=== PATIENT | female | born 1960 | race Caucasian/White ===

== ENCOUNTER 2017-07-23 10:47 | Emergency (ER) | payer OTHER ==
[~2017-07-23] VITALS: Ht 167.6 cm; Wt 68.0 kg
[2017-07-23 10:59] VITALS: BP 135/62
--- NOTE | 2017-07-23 11:34 | RAD ---
WRIST 3V RIGHT Clinical Indication: wrist pain after tripping over cat Comparison: None. Findings: There is acute traumatic fracture of the distal radial metaphysis with intra-articular extension. There is a medial and dorsal fracture fragment that is slightly displaced. There is minimal dorsal angulation of the dominant fracture fragment. There is soft tissue swelling of the wrist. No acute fracture of the carpal bones is identified. Mineralization appears normal. IMPRESSION: Acute traumatic fracture of the distal radius.
[2017-07-23] MEDS ORDERED: HYDR-971 PO (11:37)
--- NOTE | 2017-07-23 11:38 | PHYS DOC ---
Past Medical History Past Medical History: Arthritis Past Surgical History: Cervical Fusion, Cholecystectomy, Hysterectomy Alcohol Use: None Drug Use: None Adult General Chief Complaint Chief Complaint: WRIST PAIN [facility] HPI Patient is a 57 year old female presents to the emergency department complaining of right wrist pain. Patient states that she had fallen over her cat last night try to catch herself with her right arm. Patient states she has taken ibuprofen this morning. She does have deformity noted to the wrist area. Peripheral pulses 2+ cap refill brisk less than 2 seconds. Patient has good sensation noted to her fingers. Review of Systems Review of Systems Constitutional: Denies fever or chills [] Eyes: Denies change in visual acuity, redness, or eye pain [] HENT: Denies nasal congestion or sore throat [] Respiratory: Denies cough or shortness of breath [] Cardiovascular: No additional information not addressed in HPI [] GI: Denies abdominal pain, nausea, vomiting, bloody stools or diarrhea [] : Denies dysuria or hematuria [] Musculoskeletal: Denies back pain. c/o right wrist pain Integument: Denies rash or skin lesions [] Neurologic: Denies headache, focal weakness or sensory changes [] Endocrine: Denies polyuria or polydipsia [] All other systems were reviewed and found to be within normal limits, except as documented in this note. Allergies Allergies Allergies Coded Allergies Type Severity Reaction Last Updated Verified Penicillins Allergy Unknown Rash 07/23/17 Yes Physical Exam Physical Exam Constitutional: Well developed, well nourished, no acute distress, non-toxic appearance. [] HENT: Normocephalic, atraumatic, bilateral external ears normal, oropharynx moist, no oral exudates, nose normal. [] Eyes: PERRLA, EOMI, conjunctiva normal, no discharge. [] Neck: Normal range of motion, no tenderness, supple, no stridor. [] Cardiovascular:Heart rate regular rhythm Lungs & Thorax: No respiratory distress noted Skin: Warm, dry, no erythema, no rash. [] Back: No tenderness] Extremities: Right wrist tenderness, patient with deformity noted. Patient with swelling noted, no discoloration noted, no cyanosis, no clubbing, ROM intact, no edema. Peripheral pulses 2+ cap refill brisk less than 2 seconds. Good sensation noted to the fingers. Neurologic: Alert and oriented X 3, normal motor function, normal sensory function, no focal deficits noted. [] Psychologic: Affect normal, judgement normal, mood normal. [] Current Patient Data Vital Signs Vital Signs Date Time Temp Pulse Resp B/P (MAP) Pulse Ox O2 Delivery O2 Flow Rate FiO2 07/23/17 10:59 98.1 93 18 99 Room Air 98.1 EKG EKG [] Radiology/Procedures Radiology/Procedures [facility] [address] [place] [address] IMAGING REPORT Signed PATIENT: AMBER DOTY ACCOUNT: [id number] : 1960 LOCATION: ER AGE: 57 SEX: F EXAM STATUS: PRE ER ORD. PHYSICIAN: BARBIE DAUGHERTY APRN REASON: wrist pain after tripping over cat PROCEDURE: WRIST 3V RIGHT WRIST 3V RIGHT Clinical Indication: wrist pain after tripping over cat Comparison: None. Findings: There is acute traumatic fracture of the distal radial metaphysis with intra-articular extension. There is a medial and dorsal fracture fragment that is slightly displaced. There is minimal dorsal angulation of the dominant fracture fragment. There is soft tissue swelling of the wrist. No acute fracture of the carpal bones is identified. Mineralization appears normal. IMPRESSION: Acute traumatic fracture of the distal radius. DICTATED and SIGNED BY: EUNICE MAHARAJ MD DATE: 07/23/17 1126 CC: BARBIE DAUGHERTY APRN ~ [] Course & Med Decision Making Course & Med Decision Making Pertinent Labs and Imaging studies reviewed. (See chart for details) Patient with a displaced closed distal fracture of the right radius. Patient will be placed in a volar splint. Patient will be provided with a prescription for hydrocodone for severe pain and discomfort. She was instructed this medication will cause drowsiness do not take any be alert and oriented. Recommended ice packs on 20 minutes off 20 minutes several times a day. Elevation as much as possible. Recommended that she continue to use ibuprofen 800 mg every 8 hours with food stuck take if he developed an upset stomach. Patient will be provided with orthopedic name and number to follow-up with. I've spoken with the patient and/or caregivers. I've explained the patient's condition, diagnosis and treatment plan based on information available to me at this time. I've answered the patient's and/or caregivers questions and addressed any concerns. The patient and/or caregivers have a good understanding the patient's diagnosis, condition and treatment plan as can be expected at this point. Vital signs have been stabilized. The patient's condition is stable for discharge from the emergency department. The patient will pursue further outpatient evaluation with her primary care provider or other designated consulting physician as outlined in the discharge instructions. Patient and/or caregivers are agreeable to this plan of care and follow-up instructions have been explained in detail. The patient and/or caregivers have received these instructions in written format and expressed understanding of these discharge instructions. The patient and her caregivers are aware that if any significant change in condition or worsening of symptoms should prompt him to immediately return to this of the closest emergency department. If an emergent department is not readily available I would encourage him to call 911. [] Dragon Disclaimer Dragon Disclaimer This electronic medical record was generated, in whole or in part, using a voice recognition dictation system. Departure Departure Impression: Primary Impression: Right wrist fracture Disposition: HOME, SELF-CARE Condition: STABLE Referrals: ISAIAS WRIGHT MD Patient Instructions: Wrist Fracture, [id number] Additional Instructions: Activity as tolerated. Ibuprofen 800 mg every 8 hours with his uptake if he developed upset stomach. Hydrocodone for severe pain and discomfort this medication will cause drowsiness do not take any be alert and oriented. Keep the splint in place until he follow-up with orthopedic. Do not get it wet do not remove it. Ice packs on 20 minutes off 20 minutes several times a day. Elevation as much as possible. Follow-up with orthopedic within the next 3-5 days. Return back to emergency #symptoms become worse. Scripts Hydrocodone/Apap 5-325 (NORCO 5-325 TABLET) 1 Each Tablet 1 TAB PO PRN Q6HRS Y for PAIN, #20 TAB 0 Refills Prov: DATBARBIE M [employer] 07/23/17 Splinting Splinting : Location: right wrist Hand-Made Type: orthoglass Splint: volar Pre-Proc Neuro Vasc Exam: normal Post-Proc Neuro Vasc Exam: normal Problem Qualifiers Primary Impression: Right wrist fracture Encounter type: initial encounter Fracture type: closed Qualified Codes: S62.101A - Fracture of unspecified carpal bone, right wrist, initial encounter for closed fracture BARBIE DAUGHERTY [employer] Jul 23, 2017 11:38
== END 2017-07-23 11:52 | disposition home or self-care (01) ==
LOC: ER 10:47
DX: S52.591A Other fractures of lower end of right radius, initial encounter for closed fracture (principal); M19.90 Unspecified osteoarthritis, unspecified site; Z98.1 Arthrodesis status; Z90.49 Acquired absence of other specified parts of digestive tract; Z90.710 Acquired absence of both cervix and uterus; Z88.0 Allergy status to penicillin; W18.39XA Other fall on same level, initial encounter; Y93.89 Activity, other specified; Y92.89 Other specified places as the place of occurrence of the external cause; Y99.8 Other external cause status
CPT/HCPCS: 29125; 73110; 99284-25